=== PATIENT | female | born 1975 | race Hispanic/Latino ===

== ENCOUNTER 2018-05-09 13:56 | Emergency (ER) | payer OTHER ==
--- NOTE | 2018-05-09 16:14 | RAD REPORT ---
EXAM DESCRIPTION: CT - Head Brain Wo Cont - 05/09/2018 4:09 pm CLINICAL HISTORY: HEADACHE COMPARISON: CT-STROKE BRAIN W/O CONTRAST dated 03/06/2014; HEAD BRAIN W O CONTRAST dated 03/26/2011 TECHNIQUE: All CT scans are performed using dose optimization technique as appropriate and may inclu de automated exposure control or mA/KV adjustment according to patient size. FINDINGS: No intracranial hemorrhage, hydrocephalus or extra-axial fluid collection.No areas of brai n edema or evidence of midline shift. The paranasal sinuses and mastoids are clear. The calvarium is intact. IMPRESSION: No acute intracranial abnormality.
[2018-05-09 16:45] LABS: Absolute Lymphocytes (CBC) 1.6 K/uL (0.7-4.9); Absolute Monocytes 0.5 K/uL (0.1-1.3); Absolute Neutrophil 5.4 K/uL (1.8-8.0); Eosinophils % 1.1 % (0-4.4); Hematocrit 31.9 % (36.0-45.0); Lymphocytes % 21.3 % (15.3-44.8); MCH 22.4 pg (27.0-35.0); MPV 8.5 fL (7.6-11.3); Monocytes % 6.2 % (3.3-12.3); RBC Red Blood Cell Count 4.62 M/uL (3.86-4.86)
[2018-05-09] MEDS ORDERED: DIPHENHYDRAMINE 25 MG TAB/CAP ONE (17:05)
[2018-05-09] MEDS ORDERED: METOCLOPRAMIDE 10 MG/2mL INJ ONE (17:05)
[2018-05-09] MEDS ORDERED: KETOROLAC 30 MG/ML INJ ONE (17:06)
[2018-05-09] MEDS ORDERED: NA CHLORIDE 0.9% 1,000 ML ONE (17:06)
[2018-05-09 17:07] LABS: BUN Blood Urea Nitrogen 9 mg/dL (7-18); Bicarbonate 27 mmol/L (21-32); Glucose Level 86 mg/dL (74-106); Potassium 3.7 mmol/L (3.5-5.1); Sodium Level 138 mmol/L (136-145)
[2018-05-09 17:25] LABS: Blood Morphology Comment NOT SEEN (NOT SEEN); Platelet Estimate ADEQ; Urine White Blood Cell Casts OK
--- NOTE | 2018-05-09 17:47 | EDPHYS ---
Physician Documentation [facility] Name: Kayla Orr Age: 42 yrs Sex: Female : 1975 Arrival Date: 05/09/2018 Time: 13:57 Bed 30 Private MD: Lucie Aviles H ED Physician Uriel Green HPI: 05/09 16:53 This 42 yrs old Female presents to ER via Ambulatory with complaints of pm1 Abnormal Lab Results. 16:53 The patient complains of pain to the scalp. The patient complains of pain to the top of pm1 head and scalp. The patient describes the headache as aching, constant. Onset: The symptoms/episode began/occurred 10 day(s) ago. Associated signs and symptoms: Pertinent negatives: dizziness, fever, nausea, neck stiffness, sinus congestion, sinus tenderness, vision changes, vomiting, weakness. Severity of symptoms: in the emergency department the pain is unchanged. Headache History: The patient has had previous headaches and this one is different than previous episodes. The symptoms are alleviated by nothing. the symptoms are aggravated by nothing. The patient has been recently seen by a physician: the patient's primary care provider, Dr. Aviles earlier today. Patient presented to her PCP, Dr. Aviles, for headache for 10 days. Headache is present along the patient's scalp. typically her headache is left sided. Patient was sent here for further evaluation by her PCP due to possible anemia. Patient's last CBC drawn in February - Hgb 8.6. Patient directed to take iron supplementation BID from PCP. 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 - Social history:: Smoking status: Patient/guardian denies using tobacco. - Ebola Screening: : No symptoms or risks identified at this time. ROS: 16:53 Constitutional: Negative for fever, chills, and weight loss, Eyes: Negative for injury, pm1 pain, redness, and discharge, ENT: Negative for injury, pain, and discharge, Neck: Negative for injury, pain, and swelling, Cardiovascular: Negative for chest pain, palpitations, and edema, Respiratory: Negative for shortness of breath, cough, wheezing, and pleuritic chest pain, Abdomen/GI: Negative for abdominal pain, nausea, vomiting, diarrhea, and constipation, Back: Negative for injury and pain, : Negative for injury, bleeding, discharge, and swelling, MS/Extremity: Negative for injury and deformity, Skin: Negative for injury, rash, and discoloration. 16:53 Neuro: Positive for headache, Negative for dizziness, gait disturbance, numbness, tingling, visual changes, weakness. Exam: 16:53 Constitutional: This is a well developed, well nourished patient who is awake, alert, pm1 and in no acute distress. Eyes: Pupils equal round and reactive to light, extra-ocular motions intact. Lids and lashes normal. Conjunctiva and sclera are non-icteric and not injected. Cornea within normal limits. Periorbital areas with no swelling, redness, or edema. ENT: Nares patent. No nasal discharge, no septal abnormalities noted. Tympanic membranes are normal and external auditory canals are clear. Oropharynx with no redness, swelling, or masses, exudates, or evidence of obstruction, uvula midline. Mucous membranes moist. 16:53 Neck: Trachea midline, no thyromegaly or masses palpated, and no cervical lymphadenopathy. Supple, full range of motion without nuchal rigidity, or vertebral point tenderness. No Meningismus. Chest/axilla: Normal chest wall appearance and motion. Nontender with no deformity. No lesions are appreciated. Cardiovascular: Regular rate and rhythm with a normal S1 and S2. No gallops, murmurs, or rubs. Normal PMI, no JVD. No pulse deficits. Respiratory: Lungs have equal breath sounds bilaterally, clear to auscultation and percussion. No rales, rhonchi or wheezes noted. No increased work of breathing, no retractions or nasal flaring. Abdomen/GI: Soft, non-tender, with normal bowel sounds. No distension or tympany. No guarding or rebound. No evidence of tenderness throughout. Back: No spinal tenderness. No costovertebral tenderness. Full range of motion. Skin: Warm, dry with normal turgor. Normal color with no rashes, no lesions, and no evidence of cellulitis. MS/ Extremity: Pulses equal, no cyanosis. Neurovascular intact. Full, normal range of motion. 16:53 Head/face: Noted is no obvious of injury or deformity except tenderness to scalp where hair is present. 16:53 Neuro: Orientation: is normal, Mentation: is normal, Cranial nerves: CN II- XII are normal as tested, Cerebellar function: normal finger to nose testing, Motor: is normal, moves all fours, strength is normal, strength is 5/5 in all extremities, Sensation: is normal, no obvious gross deficits. Vital Signs: 14:05 BP 145 / 78; Pulse 69; Resp 16; Temp 97.2; Pulse Ox 100% ; Weight 58.97 kg; Height 5 dm5 ft. 0 in. (152.40 cm); Pain 8/10; 16:00 BP 139 / 71; Pulse 88; Resp 17; Pulse Ox 100% ; kr2 17:18 BP 133 / 72; Pulse 84; Resp 16; Pulse Ox 100% ; kr2 18:06 BP 144 / 71; Pulse 78; Resp 19; Pulse Ox 99% on R/A; kr2 14:05 Body Mass Index 25.39 (58.97 kg, 152.40 cm) dm5 MDM: 15:46 Patient medically screened. pm1 17:10 Data reviewed: vital signs. Data interpreted: Pulse oximetry: on room air is 100 %. pm1 Interpretation: normal. Counseling: I had a detailed discussion with the patient and/or guardian regarding: the historical points, exam findings, and any diagnostic results supporting the discharge/admit diagnosis, lab results, radiology results, the need for outpatient follow up, to return to the emergency department if symptoms worsen or persist or if there are any questions or concerns that arise at home. 05/09 15:52 Order name: CBC with Diff; Complete Time: 17:48 pm1 05/09 15:52 Order name: BMP; Complete Time: 17:48 pm1 05/09 15:52 Order name: CT Head Brain wo Cont; Complete Time: 16:17 pm1 05/09 16:52 Order name: CBC Smear Scan; Complete Time: 17:48 EDMS 05/09 17:24 Order name: Urine Dipstick--Ancillary (enter results) bd 05/09 15:52 Order name: IV Saline Lock; Complete Time: 16:29 pm1 05/09 15:52 Order name: Urine Dipstick-Ancillary (obtain specimen); Complete Time: 17:43 pm1 05/09 15:52 Order name: Urine Test (obtain specimen); Complete Time: 17:43 pm1 Administered Medications: 17:06 Drug: NS 0.9% 1000 ml Route: IV; Rate: 1000 ml; Site: right antecubital; kr2 18:06 Follow up: Response: No adverse reaction; IV Status: Completed infusion kr2 17:07 Drug: Reglan 10 mg Route: IVP; Site: right antecubital; kr2 17:45 Follow up: Response: No adverse reaction; Nausea is decreased kr2 17:07 Drug: Benadryl 25 mg Route: PO; kr2 17:45 Follow up: Response: No adverse reaction; Pain is decreased kr2 17:07 Drug: TORadol 30 mg Route: IVP; Site: right antecubital; kr2 17:45 Follow up: Response: No adverse reaction; Pain is decreased kr2 Disposition: 18:32 Co-signature as Attending Physician, Uriel Green MD. rn Disposition: 05/09/18 17:47 Discharged to Home. Impression: Headache, Anemia, unspecified. - Condition is Stable. - Discharge Instructions: Iron Deficiency Anemia, Adult, General Headache Without Cause, Tension Headache, Adult. - Prescriptions for Naprosyn 500 mg Oral Tablet - take 1 tablet by ORAL route 2 times per day take with food; 30 tablet. Cyclobenzaprine 10 mg Oral Tablet - take 1 tablet by ORAL route every 8 hours As needed; 30 tablet. - Medication Reconciliation Form, Thank You Letter, Antibiotic Education, Prescription Opioid Use, Work release form form. - Follow up: Emergency Department; When: As needed; Reason: Worsening of condition. Follow up: Lucie Aviles DO; When: 2 - 3 days; Reason: Recheck today's complaints, Continuance of care, Re-evaluation by your physician. - Problem is new. - Symptoms have improved. Signatures: Dispatcher [employer] EDSD Sun Morgan RN RN dm5 Uriel Green MD MD rn Marinas, Patrick, NP DISC PAD GRINDER pm1 Mariel Brooke RN RN kr2 Corrections: (The following items were deleted from the chart) 17:48 17:47 05/09/2018 17:47 Discharged to Home. Impression: Headache. Condition is Stable. pm1 Forms are Medication Reconciliation Form, Thank You Letter, Antibiotic Education, Prescription Opioid Use. Follow up: Emergency Department; When: As needed; Reason: Worsening of condition. Follow up: Ramandeep-Malcom Aviles; When: 2 - 3 days; Reason: Recheck today's complaints, Continuance of care, Re-evaluation by your physician. Problem is new. Symptoms have improved. pm1 18:09 17:48 05/09/2018 17:47 Discharged to Home. Impression: Headache; Anemia, unspecified. kr2 Condition is Stable. Discharge Instructions: General Headache Without Cause, Tension Headache, Adult, Iron Deficiency Anemia, Adult. Prescriptions for Naprosyn 500 mg Oral Tablet - take 1 tablet by ORAL route 2 times per day take with food; 30 tablet, Cyclobenzaprine 10 mg Oral Tablet - take 1 tablet by ORAL route every 8 hours As needed; 30 tablet. and Forms are Medication Reconciliation Form, Thank You Letter, Antibiotic Education, Prescription Opioid Use. Follow up: Emergency Department; When: As needed; Reason: Worsening of condition. Follow up: Lucie Aviles; When: 2 - 3 days; Reason: Recheck today's complaints, Continuance of care, Re-evaluation by your physician. Problem is new. Symptoms have improved. pm1
--- NOTE | 2018-05-09 17:47 | ER ---
Nurse's Notes [facility] Name: Kayla Orr Age: 42 yrs Sex: Female : 1975 Arrival Date: 05/09/2018 Time: 13:57 Bed 30 Private MD: Lucie Aviles H Diagnosis: Headache;Anemia, unspecified Presentation: 05/09 14:03 Presenting complaint: Patient states: pt seen by Dr. Aviles today and pt was sent here for dm5 further evaluation. Pt states she has been having a headache since approximately 04/28/18 and was told he is concerned that the patient needs blood. Pt arrived with lab results from February. pt pale and denies black tarry stool. pt states she has been on iron for "a long time." pt complains of being tired. 14:03 Method Of Arrival: Ambulatory dm5 14:05 Transition of care: patient was not received from another setting of care. Onset of hb symptoms was May 09, 2018. 14:05 Acuity: YAMILA 3 hb 14:05 Risk Assessment: Do you want to hurt yourself or someone else? Patient reports no hb desire to harm self or others. Care prior to arrival: None. 15:40 Initial Sepsis Screen: Does the patient meet any 2 criteria? No. Patient's initial kr2 sepsis screen is negative. Does the patient have a suspected source of infection? No. Patient's initial sepsis screen is negative. 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 - Social history:: Smoking status: Patient/guardian denies using tobacco. - Ebola Screening: : No symptoms or risks identified at this time. Screenin:40 Abuse screen: Denies threats or abuse. Denies injuries from another. Nutritional kr2 screening: No deficits noted. Tuberculosis screening: No symptoms or risk factors identified. Fall Risk None identified. Assessment: 15:40 General: Appears in no apparent distress. uncomfortable, well groomed, well developed, kr2 well nourished, Behavior is calm, cooperative, appropriate for age. Pain: Complains of pain in head Pain does not radiate. Pain currently is 8 out of 10 on a pain scale. Quality of pain is described as aching, throbbing, Is continuous, Alleviated by nothing. Aggravated by increased activity, Noted to be grimacing. Neuro: Level of Consciousness is awake, alert, obeys commands, Oriented to person, place, time, situation. Neuro: Steam Tank Operator are equal bilaterally Moves all extremities. Gait is steady, Speech is normal, Facial symmetry appears normal, Pupils are PERRLA, Intact. Cardiovascular: Capillary refill < 3 seconds in bilateral fingers Patient's skin is warm and dry. Respiratory: Airway is patent Respiratory effort is even, unlabored, Respiratory pattern is regular, symmetrical. GI: Abdomen is flat, non-distended, Bowel sounds present X 4 quads. Reports nausea. : Denies burning with urination. EENT: Oral mucosa is moist. Derm: Skin is intact, is healthy with good turgor, Skin is pink, warm \\T\\ dry. Musculoskeletal: Circulation, motion, and sensation intact. 17:18 Reassessment: Patient appears in no apparent distress at this time. Patient and/or kr2 family updated on plan of care and expected duration. Pain level reassessed. Patient is alert, oriented x 3, equal unlabored respirations, skin warm/dry/pink. 18:06 Reassessment: Patient appears in no apparent distress at this time. Patient and/or kr2 family updated on plan of care and expected duration. Pain level reassessed. Patient is alert, oriented x 3, equal unlabored respirations, skin warm/dry/pink. Patient denies pain at this time. Patient states feeling better. Vital Signs: 14:05 BP 145 / 78; Pulse 69; Resp 16; Temp 97.2; Pulse Ox 100% ; Weight 58.97 kg; Height 5 dm5 ft. 0 in. (152.40 cm); Pain 8/10; 16:00 BP 139 / 71; Pulse 88; Resp 17; Pulse Ox 100% ; kr2 17:18 BP 133 / 72; Pulse 84; Resp 16; Pulse Ox 100% ; kr2 18:06 BP 144 / 71; Pulse 78; Resp 19; Pulse Ox 99% on R/A; kr2 14:05 Body Mass Index 25.39 (58.97 kg, 152.40 cm) dm5 ED Course: 13:57 Patient arrived in ED. sb2 13:59 Lucie Aviles DO is Private Physician. sb2 14:05 Arm band placed on left wrist. Patient placed in waiting room. dm5 14:15 Triage completed. hb 15:40 Patient has correct armband on for positive identification. Bed in low position. Call kr2 light in reach. Side rails up X 1. Pulse ox on. NIBP on. Door closed. Warm blanket given. Head of bed elevated. 15:46 Kareem Valdes, LEW is PHCP. pm1 15:46 Uriel Green MD is Attending Physician. pm1 15:58 Mariel Brooke, REYNOLD is Primary Nurse. kr2 16:09 CT Head Brain wo Cont In Process Unspecified. EDMS 16:26 Initial lab(s) drawn, by me, sent to lab. Inserted saline lock: 22 gauge in right jp3 antecubital area, using aseptic technique. Blood collected. 16:29 BMP Sent. jp3 16:29 CBC with Diff Sent. jp3 17:15 Urine collected: clean catch specimen, clear. kr2 17:46 Lucie Aviles DO is Referral Physician. pm1 18:07 No provider procedures requiring assistance completed. IV discontinued, intact, kr2 bleeding controlled, No redness/swelling at site. Pressure dressing applied. Administered Medications: 17:06 Drug: NS 0.9% 1000 ml Route: IV; Rate: 1000 ml; Site: right antecubital; kr2 18:06 Follow up: Response: No adverse reaction; IV Status: Completed infusion kr2 17:07 Drug: Reglan 10 mg Route: IVP; Site: right antecubital; kr2 17:45 Follow up: Response: No adverse reaction; Nausea is decreased kr2 17:07 Drug: Benadryl 25 mg Route: PO; kr2 17:45 Follow up: Response: No adverse reaction; Pain is decreased kr2 17:07 Drug: TORadol 30 mg Route: IVP; Site: right antecubital; kr2 17:45 Follow up: Response: No adverse reaction; Pain is decreased kr2 Outcome: 17:47 Discharge ordered by . pm1 18:07 Discharged to home ambulatory, with family. kr2 18:07 Condition: improved 18:07 Discharge instructions given to patient, family, Instructed on discharge instructions, follow up and referral plans. medication usage, Demonstrated understanding of instructions, follow-up care, medications, Prescriptions given X 2. 18:09 Patient left the ED. kr2 Signatures: Dispatcher [employer] EDSun Jaffe RN RN dm5 Kareem Valdes, [employer] pm1 Gaby Beasley RN RN Mariel Brooke RN RN kr2 Margaux Ireland sb2 Holden Silva jp3 Corrections: (The following items were deleted from the chart) 18:06 16:00 BP 139 / 71; Pulse 18bpm; Resp 17bpm; Pulse Ox 100%; kr2 kr2
[2018-05-09 19:12] VITALS: TEMP 97.2
[2018-05-09 19:16] VITALS: BP 144/71; O2SAT 99
[2018-05-09 20:13] LABS: Urine Blood NEGATIVE (NEG); Urine Glucose NEGATIVE (NEG); Urine Protein NEGATIVE (NEG); Urine Specific Gravity 1.015 (1.005-1.030)
== END 2018-05-09 18:09 | disposition home or self-care (01) ==
LOC: ER 13:56
DX: D64.9 Anemia, unspecified (principal)
CPT/HCPCS: 36415; 70450; 80048; 81003; 85025; 96361; 96374; 96375; 99284; J2765; J7030